=== PATIENT | female | born 1995 | race Caucasian/White ===

== ENCOUNTER 2016-06-30 12:57 | Emergency (ER) | payer MEDICAID ==
[~2016-06-30] VITALS: Ht 162.6 cm; Wt 54.4 kg
[2016-06-30 13:00] VITALS: BP_SYST 100
[2016-06-30] MEDS ORDERED: NACL 0.9% 1,000 ML IV ONE (14:02)
[2016-06-30] MEDS ORDERED: KETOROLAC TROMETHAMINE 30 MG VIAL IVP ONE (14:15)
[2016-06-30] MEDS ORDERED: ONDANSETRON HCL 4 MG/2 ML VIAL IVP ONE (14:15)
[2016-06-30] MEDS ORDERED: PROCHLORPERAZINE EDISYLATE 10 MG/2 ML VIAL IVP ONE (14:15)
[2016-06-30 14:26] LABS: BILIRUBIN,URINE NEGATIVE (NEGATIVE); BLOOD, URINE 1+ (NEGATIVE); CLARITY/URINE CLEAR (CLEAR); COLOR,URINE YELLOW (YELLOW); GLUCOSE,URINE NEGATIVE (NEGATIVE); KETONES,URINE NEGATIVE (NEGATIVE); LEUKOCYTE ESTERASE ,URINE NEGATIVE (NEGATIVE); NITRITE, URINE NEGATIVE (NEGATIVE); PROTEIN URINE NEGATIVE (NEGATIVE); UROBILINOGEN,URINE 0.2 (0.2-1.0)
[2016-06-30 14:29] LABS: BASOPHILS % (AUTO) 0.4 % (0.0-2.0); EOSINOPHILS # (AUTO) 0.1 K/uL (0.0-0.4); EOSINOPHILS % (AUTO) 1.7 % (0.0-4.0); HEMATOCRIT 43.9 % (36-48); HEMOGLOBIN 14.7 g/dL (12.0-16.0); LYMPHOCYTES # (AUTO) 0.9 K/uL (1.0-5.5); LYMPHOCYTES % (AUTO) 13.4 % (20.5-51.5); MEAN CORPUSCULAR HEMOGLOBIN 29 pg (27-31); MEAN CORPUSCULAR HGB CONC 33 % (32-36); MEAN CORPUSCULAR VOLUME 87 fL (79.0-98.0); MONOCYTES # (AUTO) 0.4 K/uL (0.0-1.0); MONOCYTES % (AUTO) 6.6 % (1.7-9.3); NEUTROPHILS # (AUTO) 5.1 K/uL (1.8-7.7); NEUTROPHILS % (AUTO) 77.9 % (40.0-70.0); PLATELET COUNT (AUTO) 194 K/uL (130-430); RED BLOOD CELL COUNT(AUTO) 5.03 MIL/uL (4.2-6.2); RED CELL DISTRIBUTION WIDTH 12.5 % (9.0-15.0); WHITE BLOOD COUNT (AUTO) 6.5 K/uL (4.8-10.8)
[2016-06-30 14:52] LABS: CALCIUM 8.7 mg/dL (8.4-11.0); POTASSIUM 3.9 mmol/L (3.5-5.1)
[2016-06-30 14:53] LABS: CREATININE 0.64 mg/dL (0.55-1.30)
[2016-06-30 15:00] LABS: ALBUMIN 3.6 g/dL (3.4-4.8); TOTAL BILIRUBIN 0.6 mg/dL (0.0-1.0); TOTAL PROTEIN, SERUM 7.9 g/dL (6.4-8.3)
[2016-06-30 15:06] LABS: BACTERIA,URINE FEW /HPF (None Seen); MUCUS,URINE None Seen /LPF (None Seen); RBC,URINE 0-3 /HPF (0-3)
[2016-06-30 15:10] VITALS: BP_SYST 108
== END 2016-06-30 15:10 | disposition home or self-care (01) ==
LOC: SED 12:57
DX: K52.9 Noninfective gastroenteritis and colitis, unspecified (principal)
CPT/HCPCS: 36415; 74176; 80053; 81000; 81025; 82150; 83690; 85025; 87086; 96361; 96374; 96375; 99285; J0780; J1885; J2405; J7030

== ENCOUNTER 2017-06-06 14:43 | Emergency (ER) | payer MEDICAID ==
[~2017-06-06] VITALS: Ht 165.1 cm; Wt 54.4 kg
[2017-06-06 14:51] VITALS: BP_SYST 135
[2017-06-06 15:44] LABS: BILIRUBIN,URINE NEGATIVE (NEGATIVE); BLOOD, URINE NEGATIVE (NEGATIVE); CLARITY/URINE CLEAR (CLEAR); COLOR,URINE YELLOW (YELLOW); GLUCOSE,URINE NEGATIVE (NEGATIVE); KETONES,URINE NEGATIVE (NEGATIVE); LEUKOCYTE ESTERASE ,URINE NEGATIVE (NEGATIVE); NITRITE, URINE NEGATIVE (NEGATIVE); PH,URINE 6.5 (5.0-8.0); PROTEIN URINE NEGATIVE (NEGATIVE); UROBILINOGEN,URINE 0.2 (0.2-1.0)
[2017-06-06] MEDS ORDERED: KETOROLAC TROMETHAMINE 60 MG/2 ML VIAL IM ONE (15:45)
[2017-06-06 16:27] VITALS: BP_SYST 129
== END 2017-06-06 16:26 | disposition home or self-care (01) ==
LOC: SED 14:43
DX: M54.5 Low back pain (principal); R03.0 Elevated blood-pressure reading, without diagnosis of hypertension
CPT/HCPCS: 81003; 81025; 96372; 99283; J1885

== ENCOUNTER 2017-10-14 23:38 | Emergency (ER) | payer MEDICAID ==
[~2017-10-14] VITALS: Ht 160 cm; Wt 59.0 kg
[2017-10-14 23:41] VITALS: BP_SYST 134
[2017-10-15 00:50] LABS: BASOPHILS # (AUTO) 0.1 K/uL (0.0-0.2); BASOPHILS % (AUTO) 0.6 % (0.0-2.0); EOSINOPHILS % (AUTO) 0.1 % (0.0-4.0); HEMATOCRIT 38.8 % (36-48); LYMPHOCYTES # (AUTO) 1.3 K/uL (1.0-5.5); LYMPHOCYTES % (AUTO) 9.6 % (20.5-51.5); MEAN CORPUSCULAR HEMOGLOBIN 30 pg (27-31); MEAN CORPUSCULAR HGB CONC 34 % (32-36); MEAN CORPUSCULAR VOLUME 89 fL (79.0-98.0); MONOCYTES # (AUTO) 0.4 K/uL (0.0-1.0); MONOCYTES % (AUTO) 2.9 % (1.7-9.3); NEUTROPHILS # (AUTO) 11.9 K/uL (1.8-7.7); NEUTROPHILS % (AUTO) 86.8 % (40.0-70.0); PLATELET COUNT (AUTO) 270 K/uL (130-430); RED BLOOD CELL COUNT(AUTO) 4.36 MIL/uL (4.2-6.2); RED CELL DISTRIBUTION WIDTH 12.9 % (9.0-15.0); WHITE BLOOD COUNT (AUTO) 13.7 K/uL (4.8-10.8)
[2017-10-15 01:06] LABS: PROTHROMBIN TIME 9.9 SECS (9.5-12.5)
[2017-10-15 01:13] LABS: ALBUMIN 3.7 g/dL (3.4-4.8); CALCIUM 9.1 mg/dL (8.4-11.0); CREATININE 0.44 mg/dL (0.55-1.30); POTASSIUM 4.5 mmol/L (3.5-5.1); TOTAL BILIRUBIN 0.6 mg/dL (0.0-1.0)
[2017-10-15 02:13] VITALS: BP_SYST 121
== END 2017-10-15 02:13 | disposition home or self-care (01) ==
LOC: SED 23:38
DX: R00.2 Palpitations (principal); R07.89 Other chest pain
CPT/HCPCS: 36415; 71045; 80053; 83880; 84484; 85025; 85610-TC; 85730-TC; 99285

== ENCOUNTER 2019-02-13 21:07 | Emergency (ER) | payer MEDICAID ==
[~2019-02-13] VITALS: Ht 162.6 cm; Wt 5.4 kg
[2019-02-13 21:30] VITALS: BP_SYST 120
--- NOTE | 2019-02-13 21:32 | NUR ---
Patient to ER bed 06 to gown for evaluation. Side rails up. Report given to CHAR Lares
--- NOTE | 2019-02-13 21:40 | NUR ---
Note jay in EDM - 02/13/19 at 2155 by [email or web address] Pt brought in by self. Pt states that she got her cartilage in L ear pierced approx 5 days ago. Pt states that she noticed swelling, pain and and drainage
--- NOTE | 2019-02-13 21:40 | NUR ---
Pt brought in by self. Pt awake, alert, oriented x4. Pt states that she got her upper cartilage in L ear pierced approx 5 days ago. Pt states that she noticed swelling, pain and drainage with increasing severity over past few days. Pt denies chest pain, nausea, vomiting, diarrhea, fever, chills, shortness of breath. Pt denies any other medical complaint a this time. Pt resting comfortably in ED bed. Pt vital signs stable.
--- NOTE | 2019-02-13 22:24 | NUR ---
ER at bedside examining patient.
[2019-02-13] MEDS ORDERED: KETOROLAC TROMETHAMINE 30 MG VIAL IM ONE (22:30)
[2019-02-13] MEDS ORDERED: cefTRIAXone 1 GM in LIDOCAINE 1%, 20 ML MDV 2.1 ML IM ONE (22:30)
[2019-02-13 22:59] VITALS: BP_SYST 120
--- NOTE | 2019-02-13 22:59 | NUR ---
Patient given written and verbal discharge instructions and verbalizes understanding. ER MD discussed with patient the results and treatment provided. Patient in stable condition. ID arm band removed. Rx of Keflex and Waldo given. Patient educated on pain management and to follow up with PMD. Pain Scale 0/10 Opportunity for questions provided and answered. Medication side effect fact sheet provided.
== END 2019-02-13 22:59 | disposition home or self-care (01) ==
LOC: SED 21:07
DX: I25.10 Atherosclerotic heart disease of native coronary artery without angina pectoris (principal); H60.12 Cellulitis of left external ear
CPT/HCPCS: 81025; 96372; 99283; J0696; J1885; J2001

== ENCOUNTER 2020-11-16 13:48 | Emergency (ER) | payer MEDICAID, SELFPAY ==
[~2020-11-16] VITALS: Ht 162.6 cm; Wt 56.7 kg
[2020-11-16 13:50] VITALS: BP_SYST 118
--- NOTE | 2020-11-16 13:55 | NUR ---
BROUGHT TO OUTSIDE TRIAGE TENT AND TRIAGED. WILL ASSUME CARE
--- NOTE | 2020-11-16 14:59 | NUR ---
DR BOOGIE OUT TO TRIAGE TENT FOR EVALUATION
--- NOTE | 2020-11-16 15:14 | NUR ---
PT LEFT WITHOUT DISCHARGE PAPERWORK.
--- NOTE | 2020-11-16 16:27 | NUR ---
CALLED PT AT GIVEN NUMBER AND LEFT MESSAGE FOR PT TO RETURN CALL.
--- NOTE | 2020-11-16 17:01 | NUR ---
SPOKE WITH PT AND GAVE RESULTS OF COVID +, EXPLAIN TO PT TO ISOLATE AND TREAT HER SYMPTOMS. INFORMED PT IF SHE NEEDED WORK NOTE TO LET US KNOW, SHE SAID OK.
== END 2020-11-16 15:14 | disposition left against medical advice (07) ==
LOC: SED 13:48
DX: U07.1 COVID-19 (principal)
CPT/HCPCS: 36415; 99283

== ENCOUNTER 2024-01-13 22:32 | Emergency (ER) | payer MEDICAID ==
[~2024-01-13] VITALS: Ht 165.1 cm; Wt 62.6 kg
[2024-01-13 22:49] VITALS: BP_SYST 107; PULSE 126; RESP 24; TEMP 98; O2SAT 98
[2024-01-14] MEDS ORDERED: CEPH-548 PO (00:46)
[2024-01-14] MEDS: cephALEXin 500 MG CAPSULE PO ONE (00:53)
[2024-01-14] MEDS: KETOROLAC TROMETHAMINE 30 MG VIAL IM ONE (00:54)
[2024-01-14 00:58] VITALS: BP_SYST 107; PULSE 126; RESP 24; TEMP 98; O2SAT 98
== END 2024-01-14 00:58 | disposition home or self-care (01) ==
LOC: SED 22:32
DX: L03.317 Cellulitis of buttock (principal); Z79.2 Long term (current) use of antibiotics
CPT/HCPCS: 99283; 96372; J1885